=== PATIENT | female | born 1990 | race Caucasian/White ===

== ENCOUNTER → 2017-03-12 | Outpatient (CLI) | payer MEDICAID ==
[~2017-03-12] MED LIST: CELEXA10 MG PO; CIPRO 500MG TA500 MG PO; CLINDAMYCIN300 MG PO; HYDROCODONE-APA1 TA1 PO; IBUPROFEN400 MG PO; NASAL DECONGEST30 MG PO; NYQUIL PO; PERCOCET 5/3251 EACH PO; PHENERGAN 25MG.25 M1 PO; PRENATAL1 TA2 PO; RISPERDAL 0.20.25 MG PO; TYLENOL ES500 M1 PO; ULTRAM ER100 MG PO; VISTARIL25 M1 PO; ZOFRAN 8MG TABLE8 MG PO; ZOFRAN4 MG PO
[2017-03-12 17:37] LABS: LYMPH # 2.5 K/mm3 (0.7-4.5); LYMPH % 21.7 % (10-50.0)
[2017-03-12 17:44] LABS: HEMOGLOBIN 12.6 g/dL (12.2-16.2)
[2017-03-12 17:52] LABS: ABO BLOOD TYPE O
[2017-03-12 17:53] LABS: RH BLOOD TYPE POSITIVE
[2017-03-14 06:37] LABS: HBsAg Screen Negative (Negative); Rubella Antibodies, IgG 1.78 index (Immune >0.99)
[2017-03-14 08:45] LABS: HIV Screen 4th Generation wRfx Non Reactive (Non Reactive); Rapid Plasma Reagin, Quant Non Reactive (NonRea<1:1)
== END ==
LOC: LAB 15:27
PROVIDERS: Nurse Practitioner Obstetrics & Gynecology
DX: Z34.80 Encounter for supervision of other normal pregnancy, unspecified trimester (principal)
CPT/HCPCS: G0432

== ENCOUNTER → 2017-03-15 | Outpatient (CLI) | payer MEDICAID ==
--- NOTE | 2017-03-15 16:04 | RADIOLOGY REPORT PS360 ---
US TRANSVAGINAL PREG HISTORY: DATES ORDERING PHYSICIAN: Orlando David MD PATIENT AGE: 26 years COMPARISON: None FINDINGS: An intrauterine gestational sac is present with a pole with a crown-rump length of 6.19 cm correlating to gestational age of 12 weeks 5 days. heart tones are present with an FHR of 157 bpm's. Placenta is forming anteriorly. Adnexa: Unremarkable. IMPRESSION: Live intrauterine gestation at 12 weeks 5 days
== END ==
LOC: RAD 12:28
DX: O26.841 Uterine size-date discrepancy, first trimester (principal)

== ENCOUNTER → 2017-08-30 | Outpatient (CLI) | payer MEDICAID ==
[~2017-08-30] MED LIST changes: +IRON TABLETS325 MG PO; +PRENATAL PLUS1 TA1 PO
== END ==
LOC: LAB 16:05
DX: Z34.80 Encounter for supervision of other normal pregnancy, unspecified trimester (principal)

== ENCOUNTER 2017-09-01 15:13 | Outpatient (CLI) | payer MEDICAID ==
[~2017-09-01] VITALS: Ht 162.6 cm; Wt 70.3 kg
[2017-09-01 15:36] VITALS: BP 129/77
[2017-09-01 15:55] LABS: URINE BILIRUBIN - DIPSTICK NEGATIVE (NEG); URINE BLOOD TRACE-INTACT (NEG)
[2017-09-01 16:13] LABS: AMPHETAMINES/METAMPHETAMINES NEGATIVE ng/mL (<1000)
== END 2017-09-01 16:25 | disposition home or self-care (01) ==
LOC: OB 15:13 → OBOUT 15:13 → OB 15:15 → OBOUT 16:25
PROVIDERS: Nurse Practitioner Obstetrics & Gynecology
DX: O60.03 Preterm labor without delivery, third trimester (principal); Z3A.37 37 weeks gestation of pregnancy

== ENCOUNTER 2017-10-23 06:18 | Day surgery (SDC) | payer MEDICAID ==
[~2017-10-23] VITALS: Ht 162.6 cm; Wt 64.0 kg
[~2017-10-23 06:18] MED LIST changes: +MOTRIN 400MG.400 MG PO; +NICOTINE T21 MG/24 H TD
[2017-10-23 07:08] LABS: LYMPH # 2.9 K/mm3 (0.7-4.5); LYMPH % 23.3 % (10-50.0)
[2017-10-23 07:14] LABS: HEMOGLOBIN 12.6 g/dL (12.2-16.2)
--- NOTE | 2017-10-23 08:12 | Operative Note ---
Procedure/Operative Record Procedure Date of procedure: 10/23/17 Pre-Op Dx: Desire for sterilization Post-Op Dx: Desire for sterilization Procedure performed: Laparoscopic bilateral salpingectomy Surgeon: Dr. Orlando David [place] Skilled Maintenance Supervisor(s): None Anesthesia: Moo Ana EBL (ml): 25 Clinical note: She is a 26-year-old lady who expressed desire for sterilization. The risks and benefits as well as the irreversibility of bilateral salpingectomy were discussed with the patient prior surgery. Operative findings: She had a normal-appearing pelvis. There was approximately 20 mL blood in the pelvis but she was on her period and I suspect it was retrograde flow. Ovaries and tubes appeared normal. The appendix was visualized and appeared normal. The upper abdomen appeared normal. The rest of the pelvis appeared normal. Operative note: She was taken the operating room where general anesthesia was found be adequate. She was prepped and draped in the normal sterile fashion in the semi-lithotomy position. A weighted speculum was placed in the vagina and the anterior lip of the cervix was grasped with a tenaculum. Matos dilators used to dilate the cervix to approximately 4 mm. I then inserted a Nadia uterine manipulator into the uterine cavity and insufflated the balloon. I changed gloves and then injected 10 mL of 0.5 percent ropivacaine around the umbilicus. I made a small incision within the umbilicus and inserted a Veress needle into the abdominal cavity. The abdominal cavity was then insufflated with carbon oxide gas to a pressure of 20 mmHg. I then inserted a 5 mm trocar under direct vision. I injected through and through the pubic hairline, made a small incision here and then inserted an 8 mm trocar under direct vision. I identified the inferior epigastric arteries on the LEFT side, went lateral to these and injected through and through. I then inserted a 5 mm trocar under direct vision. The RIGHT tube was then grasped near the cornua and using Harmonic scalpel on coagulation mode I coagulated along the tube for approximately a centimeter. I then cut through the tube.. I then grasped the distal end of the tube and using harmonic scalpel I cut along the meso salpinx. The tube was completely removed. This was similarly performed on the patient's LEFT side. The tubes were then removed through the 8 mm trocar site. After once again assuring hemostasis we then injected 30 mL of 0.5 percent ropivacaine into the pelvis. The secondary trochars were removed under direct vision and the gas was let out of the abdomen. All sites were hemostatic. The primary trocar and camera were then removed. The 8 mm trocar site was closed deeply with 2-0 Vicryl suture followed by interrupted subcuticular 4-0 Monocryl suture. The 5 mm trocar sites were closed with subcu care 4-0 Monocryl suture. Sterile dressings were applied. The patient tolerated the procedure well and was taken to the recovery room in excellent condition. All sponge instrument and needle counts were correct. Estimate a blood loss was less than 25 mL. Conplications: None Specimens: Bilateral fallopian tubes. at 0812
--- NOTE | 2017-10-23 08:25 | Anesthesia Record ---
Anesthesia Record Part II Discharge time: 0850 Destination: Same day surgery PACU nurse assessment review? Yes Patient is: Stable Anesthesia complications? No at 0824
--- NOTE | 2017-10-23 08:25 | Anesthesia Record ---
Anesthesia Record Part I Total IV fluids: 750 EBL (ml): 20 Urine Output: 30 B/P: 132/76 % SaO2: 96 Pulse: 69 Resps: 20 Temp: 98.4 Patient is: Awake, Stable Stable to PACU at: 0820 at 0824
[2017-10-23 13:34] VITALS: BP 124/73
== END 2017-10-23 09:45 | disposition home or self-care (01) ==
LOC: SDC 06:18
PROVIDERS: Nurse Practitioner Obstetrics & Gynecology
PROC: 0UT74ZZ Resection of Bilateral Fallopian Tubes, Percutaneous Endoscopic Approach (ICD-10-PCS; principal; 2017-10-23 07:30)
DX: Z30.2 Encounter for sterilization (principal)
CPT/HCPCS: J0131; J2405; J2710